=== PATIENT | male | born 1995 | race Caucasian/White ===

== ENCOUNTER 2018-01-05 19:43 | Emergency (ER) | payer OTHER ==
[~2018-01-05] VITALS: Ht 182.9 cm; Wt 149.7 kg
--- NOTE | 2018-01-05 19:54 | NUR ---
PT PRESENTED TO THE ER WITH A C/O RT GREAT TOE PAIN W/O TRAUMA. PT STATED THAT HE WAS WALKING AROUND A [place] YARD TODAY FOR ABOUT 30 MINS AND NOW CAN NOT WALK. PT IS ABLE TO SLIGHTLY MOVE THE GREAT TOE AND STATED THAT HE HAS SHOOTING PAIN WITH MOVEMENT OR WALKING.
[2018-01-05] MEDS ORDERED: KETOROLAC TROMETHAMINE INJ 60 MG/2 ML VIAL IM ONE ×2 (20:18→20:30)
[2018-01-05] MEDS ORDERED: predniSONE 20 MG TABLET ONE (20:18)
--- NOTE | 2018-01-05 20:23 | NUR ---
XRAYS DONE AT THE BEDSIDE.
--- NOTE | 2018-01-05 20:25 | NUR ---
PT REC'D MEDICATION ORDERED.
[2018-01-05] MEDS ORDERED: predniSONE 20 MG TABLET PO ONE (20:30)
--- NOTE | 2018-01-05 20:33 | NUR ---
PT'S FATHER IS AT THE BEDSIDE AND PT APPEARS TO BE AGGITATED WITH HIS FATHER.
--- NOTE | 2018-01-05 21:25 | NUR ---
Patient discharged to home in stable condition. Written and verbal after care instructions given. Patient verbalizes understanding of instruction AND RX. PT AMBULATED OUT WITH CRUTCHES. PT'S FATHER IS DRIVING PT HOME. VSS.
--- NOTE | 2018-01-05 21:25 | NUR ---
Crutches dispensed. Pt instructed on proper use of crutches. Patient able to demonstrate correct use of crutches.
[2018-01-05 21:35] VITALS: BP 136/87
== END 2018-01-05 21:36 | disposition home or self-care (01) ==
LOC: ER 19:45
DX: M10.071 Idiopathic gout, right ankle and foot (principal)
CPT/HCPCS: 73630-TC; A4606; J1885; Z7610